=== PATIENT | female | born 1985 | race Caucasian/White ===

== ENCOUNTER 2020-01-15 11:50 | Emergency (ER) | payer BC, MEDICAID, SELFPAY ==
[2020-01-15 13:30] VITALS: BP 123/68; PULSE 69; RESP 18; TEMP 36.6; O2SAT 100; BMI 29.0
--- NOTE | 2020-01-15 13:44 | HMH.EDUTC ---
[facility] [place] Clinical Impression: Exposure to COVID-19 virus Disposition: Home, Self-Care Condition on Discharge: Good Instructions: Preventing the Spread of Coronavirus Discharge Instructions Additional Instructions: Drink plenty of fluids. Take tylenol for pain or fever. Return if you begin to have difficulty breathing. Follow up with your regular doctor. GO TO THE ER FOR ANY WORSENING SYMPTOMS Referrals: Cindy Restrepo [Primary Care Provider] - Time of Disposition: 13:52 Medical Decision Making - Medical Records Medical records reviewed: No: I reviewed the patient's medical records. - Sekou Inquiry Pt receiving controlled substance: No Vital Signs: 01/15/20 13:30 01/15/20 14:03 Temperature 97.8 F 97.8 F Temperature Source Oral Pulse Rate 69 Pulse Rate [Right Brachial] 69 Respiratory Rate 18 18 Blood Pressure 123/68 Blood Pressure [Right Arm] 123/68 Blood Pressure Mean [Right Arm] 86 Blood Pressure Source [Right Arm] Automatic Cuff Blood Pressure Position [Right Arm] Sitting 02 Sat by Pulse Oximetry 100 Oxygen Delivery Method Room Air Orders (Tests/Meds): ORDERS Category Date Time Status Covid-19 Nasal PCR ([facility]) Routine Lab 01/15/20 13:30 Received [facility] [place] - General Stated complaint: Cough, sore throat Time Seen by Provider: 01/15/20 13:44 - History of Present Illness Provider Complaint: She states that she was exposed to covid-19 by her boyfriend. She denies any symptoms, but she would like to be tested. - Related Data Allergies Allergy/AdvReac Type Severity Reaction Status Date / Time No Known Allergies Allergy Verified 12/07/18 15:30 [facility] History - Hepatitis A Screen Attestation statement:: This patient has been screened for Hepatitis A risk factors. I have reviewed the patient's past medical history: Yes Other Surgeries: Yes: Tubal Ligation Amputation: No Fractures: Yes - Social History Smoking Status: Current every day smoker Alcohol Intake: current Alcohol Intake Frequency:: holidays/special occasions only Substance Use Type: denies use Occupational Status: employed Housing: house Household Members: significant other, children Family Hx:: Diabetes, Hypertension, Coronary Artery Disease ROS Obtained: Yes All systems reviewed & no additional complaints - Constitutional Constitutional: Reports system reviewed and no additional complaints, except as docu - Eyes Eyes: Reports system reviewed and no additional complaints, except as docu - ENT Ears, Nose, Mouth, and Throat: Reports system reviewed and no additional complaints, except as docu - Cardiovascular Cardiovascular: Reports system reviewed and no additional complaints, except as docu - Respiratory Respiratory: Yes system reviewed and no additional complaints, except as docu - Gastrointestinal Gastrointestingal: Reports: system reviewed and no additional complaints, except as docu Physical Exam - General General appearance: alert, in no apparent distress - Head Head exam: atraumatic, normocephalic, normal inspection - Eye Eye exam: Present: normal appearance, PERRL, EOMI - ENT ENT exam: Present: normal exam, normal oropharynx, mucous membranes moist, TM's normal bilaterally, normal external ear exam - Neck Neck exam: Present: normal inspection, full ROM, trachea midline. Absent: meningismus, lymphadenopathy - Chest Chest inspection: Present: normal inspection, symmetric chest wall rise. Absent: tenderness - Respiratory Respiratory exam: Present: normal lung sounds bilaterally. Absent: respiratory distress - Cardiovascular Cardiovascular exam: Present: regular rate, normal rhythm. Absent: JVD - Abdominal Exam Abdominal exam: Present: soft, normal bowel sounds. Absent: distention, tenderness, guarding - Extremities Exam Extremities exam: Present: normal inspection, full ROM, normal capillary refill. Absent: calf tenderness - Back
[2020-01-15 14:03] VITALS: BP 123/68; PULSE 69; RESP 18; TEMP 36.6; O2SAT 100
== END 2020-01-15 14:05 | disposition home or self-care (01) ==
PROVIDERS: Emergency Provider Nurse Practitioner Family; PCP Nurse Practitioner Family
DX: Z20.828 Contact with and (suspected) exposure to other viral communicable diseases (principal); F17.210 Nicotine dependence, cigarettes, uncomplicated
CPT/HCPCS: 99201; U0003

== ENCOUNTER 2020-01-27 10:35 | Emergency (ER) | payer BC, MEDICAID, SELFPAY ==
[2020-01-27 10:45] VITALS: BP 114/75; PULSE 108; RESP 18; TEMP 37; O2SAT 100; BMI 26.5
--- NOTE | 2020-01-27 10:59 | HMH.EDUTC ---
[place] Disposition Clinical Impression: Encounter for laboratory testing for COVID-19 virus Disposition: Home, Self-Care Condition on Discharge: Good Instructions: Preventing the Spread of Coronavirus Discharge Instructions Additional Instructions: You was tested for today for COVID19 your test result should be back in the next 24-48 hours, you may call to the [facility] tomorrow to see if your test results are back however could take up to 48 hours before results are back [phone] [facility] hours are 9am-9pm You was given a handout with instructions for Self Quarantine and Self isolation for while you wait on test results and what to do if they are positive If you are positive the Health Dept will be contacting you also Referrals: Cindy Restrepo [Primary Care Provider] - As needed Forms: Work/School Release Time of Disposition: 11:01 Medical Decision Making - Sekou Inquiry Pt receiving controlled substance: No Sekou was queried for this patient: No Vital Signs: 01/27/20 10:45 Temperature 98.6 F Temperature Source Oral Pulse Rate [Right Brachial] 108 H Respiratory Rate 18 Blood Pressure [Right Arm] 114/75 Blood Pressure Mean [Right Arm] 88 Blood Pressure Source [Right Arm] Automatic Cuff Blood Pressure Position [Right Arm] Sitting 02 Sat by Pulse Oximetry 100 Oxygen Delivery Method Room Air Orders (Tests/Meds): ORDERS Category Date Time Status Covid-19 Nasal PCR Sendout [facility] Stat Lab 01/27/20 10:56 Ordered [place] HPI - General Stated complaint: Covid test Time Seen by Provider: 01/27/20 10:59 Mode of Arrival: Ambulatory Source of Information: Patient Limitations: No Limitations Description of Symptoms (Recalled from Triage Doc. by RN): PATIENT'S DAUGHTER TESTED POSITIVE FOR COVID AND PATIENT IS NEEDING A NEGATIVE COVID TEST TO RETURN TO WORK HEENT Symptoms (Recalled from RN notes): No Resp Symptoms (Recalled from RN notes): No Skin Symptoms (Recalled from RN notes): No MS Symptoms (Recalled from RN notes): No Functional Status (Recalled from RN notes): WNL - History of Present Illness Provider Complaint: Patient states that she has been under quarantine since her daughter tested positive for COVID States that her quarantine period is up and she had to coem in to get tested because her work wanted a negative COVID test before she could return - Related Data Allergies Allergy/AdvReac Type Severity Reaction Status Date / Time No Known Allergies Allergy Verified 12/07/18 15:30 - Worker's Comp Is this a Worker's Comp case?: No [facility] History - Hepatitis A Screen Drug use history?: No High risk sexual behaviors?: No History of sexually transmitted infection?: No Currently employed?: No Childcare worker?: No Do you have indoor plumbing?: Yes Do you have electricity?: Yes Attestation statement:: This patient has been screened for Hepatitis A risk factors. I have reviewed the patient's past medical history: Yes Other Surgeries: Yes: Tubal Ligation Amputation: No Fractures: Yes - Social History Smoking Status: Current every day smoker Alcohol Intake: never Alcohol Intake Frequency:: holidays/special occasions only Substance Use Type: denies use Occupational Status: other Housing: house Household Members: significant other, children Family Hx:: Diabetes, Hypertension, Coronary Artery Disease ROS Obtained: Yes All systems reviewed & no additional complaints, Yes Systems reviewed as appropriate & no additional complaints - Constitutional Constitutional: Reports system reviewed and no additional complaints, except as docu, Denies body ache, Denies fever(s), Denies headache(s) - ENT Ears, Nose, Mouth, and Throat: Reports system reviewed and no additional complaints, except as docu - Cardiovascular Cardiovascular: Reports system reviewed and no additional complaints, except as docu - Respiratory Respiratory: Yes system reviewed and no additional complaints, except as docu - Gastr
[2020-01-27 11:10] VITALS: BP 114/75; PULSE 108; RESP 18; TEMP 37; O2SAT 100
[2020-01-28 10:02] LABS: Covid-19 Nasal PCR Sendout Lex NOT DETECTED
== END 2020-01-27 11:14 | disposition home or self-care (01) ==
PROVIDERS: Emergency Provider Nurse Practitioner; PCP Nurse Practitioner Family
DX: Z20.828 Contact with and (suspected) exposure to other viral communicable diseases (principal); F17.210 Nicotine dependence, cigarettes, uncomplicated
CPT/HCPCS: 99201; U0004

== ENCOUNTER 2020-03-07 09:56 | Emergency (ER) | payer OTHER, MEDICAID, SELFPAY ==
[2020-03-07 10:25] VITALS: BP 120/83; PULSE 79; RESP 20; TEMP 36.8; O2SAT 100; BMI 26.5
--- NOTE | 2020-03-07 10:48 | HMH.EDUTC ---
[facility] [place]ression: Exposure to COVID-19 virus Disposition: Home, Self-Care Condition on Discharge: Good Instructions: Preventing the Spread of Coronavirus Discharge Instructions Additional Instructions: Drink plenty of fluids. Take tylenol for pain or fever. Return if you begin to have difficulty breathing. Follow up with your regular doctor. GO TO THE ER FOR ANY WORSENING SYMPTOMS Referrals: Cindy Restrepo [Primary Care Provider] - Time of Disposition: 11:02 Medical Decision Making - Medical Records Medical records reviewed: No: I reviewed the patient's medical records. - Sekou Inquiry Pt receiving controlled substance: No Vital Signs: 03/07/20 10:25 03/07/20 11:04 Temperature 98.3 F 98.3 F Temperature Source Oral Pulse Rate 79 Pulse Rate [Right Brachial] 79 Respiratory Rate 20 20 Blood Pressure 120/83 Blood Pressure [Right Arm] 120/83 Blood Pressure Mean [Right Arm] 95 Blood Pressure Source [Right Arm] Automatic Cuff Blood Pressure Position [Right Arm] Sitting 02 Sat by Pulse Oximetry 100 Oxygen Delivery Method Room Air [facility] [place] - General Stated complaint: covid exposure Time Seen by Provider: 03/07/20 10:48 - History of Present Illness Provider Complaint: She states that she has been exposed to covid-19. Both her parents and her son have covid right now. - Related Data Allergies Allergy/AdvReac Type Severity Reaction Status Date / Time No Known Allergies Allergy Verified 12/07/18 15:30 [facility] History - Hepatitis A Screen Attestation statement:: This patient has been screened for Hepatitis A risk factors. I have reviewed the patient's past medical history: Yes Other Surgeries: Yes: Tubal Ligation Amputation: No Fractures: Yes - Social History Smoking Status: Current every day smoker Alcohol Intake: never Alcohol Intake Frequency:: holidays/special occasions only Substance Use Type: denies use Occupational Status: other Housing: house Household Members: significant other, children Family Hx:: Diabetes, Hypertension, Coronary Artery Disease ROS Obtained: Yes All systems reviewed & no additional complaints - Constitutional Constitutional: Reports system reviewed and no additional complaints, except as docu - Eyes Eyes: Reports system reviewed and no additional complaints, except as docu - ENT Ears, Nose, Mouth, and Throat: Reports system reviewed and no additional complaints, except as docu - Cardiovascular Cardiovascular: Reports system reviewed and no additional complaints, except as docu - Respiratory Respiratory: Reports system reviewed and no additional complaints, except as docu - Gastrointestinal Gastrointestingal: Reports: system reviewed and no additional complaints, except as docu Physical Exam - General General appearance: alert, in no apparent distress - Head Head exam: atraumatic, normocephalic, normal inspection - Eye Eye exam: Present: normal appearance, PERRL, EOMI - ENT ENT exam: Present: normal exam, normal oropharynx, mucous membranes moist, TM's normal bilaterally, normal external ear exam - Neck Neck exam: Present: normal inspection, full ROM, trachea midline. Absent: meningismus, lymphadenopathy - Chest Chest inspection: Present: normal inspection, symmetric chest wall rise. Absent: tenderness - Respiratory Respiratory exam: Present: normal lung sounds bilaterally. Absent: respiratory distress - Cardiovascular Cardiovascular exam: Present: regular rate, normal rhythm. Absent: JVD - Abdominal Exam Abdominal exam: Present: soft, normal bowel sounds. Absent: distention, tenderness, guarding - Extremities Exam Extremities exam: Present: normal inspection, full ROM, normal capillary refill. Absent: calf tenderness - Back Exam Back exam: Present: normal inspection. Absent: tenderness - Neurological Exam Neurological exam: Present: alert, oriented X3 - Psychiatric
[2020-03-07 11:04] VITALS: BP 120/83; PULSE 79; RESP 20; TEMP 36.8; O2SAT 100
== END 2020-03-07 11:09 | disposition home or self-care (01) ==
PROVIDERS: Emergency Provider Nurse Practitioner Family; PCP Nurse Practitioner Family
DX: Z20.822 Contact with and (suspected) exposure to COVID-19 (principal); F17.210 Nicotine dependence, cigarettes, uncomplicated
CPT/HCPCS: 99202; G0463; U0003

== ENCOUNTER 2020-03-10 09:07 | Emergency (ER) | payer OTHER, MEDICAID, SELFPAY ==
[2020-03-10 09:15] VITALS: BP 123/77; PULSE 69; RESP 19; TEMP 37.1; O2SAT 100; BMI 26.5
--- NOTE | 2020-03-10 09:42 | HMH.EDUTC ---
[facility] [place] Clinical Impression: Exposure to COVID-19 virus Disposition: Home, Self-Care Condition on Discharge: Good Instructions: DI for COVID-19 (Suspected or Confirmed ), Coronavirus Disease 2019, Preventing the Spread of Coronavirus Discharge Instructions Additional Instructions: *Monitor Temp, Over the counter Motrin or Tylenol as directed/as needed Tylenol every 4 hours and Motrin every 6 hours (as long as your family doctor has told you that you can take it) for fever or pain. and straight to ER if unable to lower temp less than 101.0 after medication given Follow up IMMEDIATELY for new or worsening symptoms or no Noticeable improvement over the next 48-72 hours. 911 for difficulty breathing or swallowing You were tested for today for COVID19 your test result should be back in the next 24-48 hours, you may call to the [facility] to see if your test results are back in the next 48 hours [phone] [facility] hours are 9am-9pm You was given a handout with instructions for Self Quarantine and Self isolation for while you wait on test results and what to do if they are positive If you are positive the Health Dept will be contacting you also Referrals: Cindy Restrepo [Primary Care Provider] - As needed Time of Disposition: 09:43 Medical Decision Making - Sekou Inquiry Pt receiving controlled substance: No Sekou was queried for this patient: No Vital Signs: 03/10/20 09:15 Temperature 98.7 F Temperature Source Oral Pulse Rate [Right Brachial] 69 Respiratory Rate 19 Blood Pressure [Right Arm] 123/77 Blood Pressure Mean [Right Arm] 92 Blood Pressure Source [Right Arm] Automatic Cuff Blood Pressure Position [Right Arm] Sitting 02 Sat by Pulse Oximetry 100 Oxygen Delivery Method Room Air Orders (Tests/Meds): ORDERS Category Date Time Status Covid-19 Nasal PCR Sendout [facility] Stat Lab 03/10/20 09:15 Ordered [facility] [place] HPI - General Stated complaint: Covid re test Time Seen by Provider: 03/10/20 09:42 Mode of Arrival: Ambulatory Source of Information: Patient Limitations: No Limitations Description of Symptoms (Recalled from Triage Doc. by RN): NEEDING COVID TEST TO RETURN TO WORK. DENIES SYMPTOMS HEENT Symptoms (Recalled from RN notes): No Resp Symptoms (Recalled from RN notes): No Skin Symptoms (Recalled from RN notes): No MS Symptoms (Recalled from RN notes): No Functional Status (Recalled from RN notes): WNL - History of Present Illness Provider Complaint: Patient states that she was recently about several people at work that has since tested positive for COVID States that her mother also was positive States that she is not having any symptoms and wanted to get tested so she can return to work States that she was tested on Saturday and it was negative but thinks she may have tested too soon - Related Data Allergies Allergy/AdvReac Type Severity Reaction Status Date / Time No Known Allergies Allergy Verified 12/07/18 15:30 - Worker's Comp Is this a Worker's Comp case?: No [facility] History - Hepatitis A Screen Drug use history?: No High risk sexual behaviors?: No History of sexually transmitted infection?: No Currently employed?: No Childcare worker?: No Do you have indoor plumbing?: Yes Do you have electricity?: Yes Attestation statement:: This patient has been screened for Hepatitis A risk factors. I have reviewed the patient's past medical history: Yes Other Surgeries: Yes: Tubal Ligation Amputation: No Fractures: Yes - Social History Smoking Status: Current every day smoker Alcohol Intake: never Alcohol Intake Frequency:: holidays/special occasions only Substance Use Type: denies use Occupational Status: other Housing: house Household Members: significant other, children Family Hx:: Diabetes, Hypertension, Coronary Artery Disease ROS Obtained: Yes All systems reviewed & no additional complaints, Yes Systems reviewed as appropriate & no additional complaints - Constitutional Const
[2020-03-10 09:46] VITALS: BP 123/77; PULSE 69; RESP 19; TEMP 37.1; O2SAT 100
[2020-03-11 07:55] LABS: Covid-19 Nasal PCR Sendout P&C NEGATIVE
== END 2020-03-10 09:48 | disposition home or self-care (01) ==
PROVIDERS: Emergency Provider Nurse Practitioner; PCP Nurse Practitioner Family
DX: Z20.822 Contact with and (suspected) exposure to COVID-19 (principal); F17.210 Nicotine dependence, cigarettes, uncomplicated
CPT/HCPCS: 99202; G0463; U0004

== ENCOUNTER → 2021-03-21 20:06 | Outpatient (CLI) | payer OTHER, MEDICAID, SELFPAY | PROVIDERS: PCP Nurse Practitioner Family; Visit Provider Emergency Medicine | DX: Z20.822 Contact with and (suspected) exposure to COVID-19 (principal) | CPT/HCPCS: C9803; U0003; U0005 ==

== ENCOUNTER → 2021-08-01 13:17 | Outpatient (CLI) | payer OTHER, MEDICAID, SELFPAY ==
--- NOTE | 2021-08-01 13:17 | US_ITS ---
FINAL REPORT CLINICAL HISTORY: pelvic pain FINDINGS: Transvaginal sonographic images of the pelvis were obtained. The uterus is mildly enlarged and measures 9.2 x 5.9 x 4.9 cm. The endometrium measures 8 mm, which is within normal limits. No uterine mass is identified. The right ovary measures 2.8 cm in length and left ovary measures 3.5 cm in length. Normal blood flow seen to the ovaries. Small follicles are present bilaterally. There is a 1.8 cm left ovarian cyst. There is no evidence of free fluid. IMPRESSION: Uterus is mildly enlarged. 1.8 cm left ovarian cyst. Reviewed, Interpreted and Dictated by Jerry Diaz III, MD Transcribed by Lina Jimenez Authenticated and [facility]
== END ==
PROVIDERS: PCP Nurse Practitioner Family; Visit Provider Obstetrics & Gynecology
DX: R10.2 Pelvic and perineal pain (principal)
CPT/HCPCS: 76830

== ENCOUNTER → 2021-09-06 08:08 | Outpatient (CLI) | payer OTHER, MEDICAID, SELFPAY ==
[2021-09-06 08:14] LABS: MANUAL DIFFERENTIAL MANUAL DIFFERENTIAL (MANUAL DIFF)
[2021-09-06 08:34] LABS: Basophils % 0.6 % (0.1-2.0); Eosinophils # 0.2 K/mm3 (0.0-0.4); Eosinophils % 3.4 % (0.1-12.0); Hematocrit 41.9 % (37.0-47.0); Hemoglobin 13.4 g/dL (12.2-16.2); Lymphocytes # 1.4 K/mm3 (0.7-4.5); Lymphocytes % 24.8 % (10-50); Mean Corpuscular Hemoglobin 30.8 pg (27.0-31.2); Mean Corpuscular Volume 96.4 fl (81-99); Mean Platelet Volume 9.7 fl (7.4-10.4); Monocytes # 0.3 K/mm3 (0.1-1.0); Monocytes % 5.7 % (1.7-9.3); Neutrophils # 3.7 K/mm3 (1.8-7.8); Neutrophils % 65.4 % (37.0-80.0); Platelet Count 223 K/mm3 (142-424); Red Blood Count 4.35 M/mm3 (4.20-5.40); Red Cell Distribution Width 13.1 % (11.5-17.5); Urine Pregnancy, HCG Qual. Negative (Negative); White Blood Count 5.7 K/mm3 (4.8-10.8)
[2021-09-06 09:14] LABS: Anion Gap 10.2 mEq/L (5-15); Blood Urea Nitrogen 13 mg/dl (7-17); Carbon Dioxide 28 mmol/L (22.0-30.0); Chloride 104 mmol/L (98-107); Estimated Glomerular Filt Rate 80 ml/min (>60); GFR (African American) 97 ML/MIN (>60); Glucose 110 mg/dl (74-100); Potassium 4.2 mmoL/L (3.5-5.1); Sodium 138 mmol/L (136-145)
[2021-09-06 10:10] LABS: Lymphocytes % 21 % (10-50); Monocytes % 4 % (2-9); Neutrophils % 75 % (42-76); Platelet Estimate Normal; RBC Morphology Normal; Total Cells Counted 100
== END ==
PROVIDERS: PCP Nurse Practitioner Family; Visit Provider Urology
DX: Z01.812 Encounter for preprocedural laboratory examination (principal); Z20.822 Contact with and (suspected) exposure to COVID-19; N39.3 Stress incontinence (female) (male)
CPT/HCPCS: 36415; 80048; 81025; 85007; 85014; 85018; 85048; 85049; C9803; U0003; U0005

== ENCOUNTER 2021-09-08 07:38 | Day surgery (SDC) | payer OTHER, MEDICAID, SELFPAY ==
[2021-09-07 08:09] VITALS: BMI 26.5
[2021-09-08] VITALS (9 sets, daily range): BP systolic 104–136; BP diastolic 67–83; PULSE 67–95; RESP 16–18; TEMP 36.2–36.9; O2SAT 98–100
--- NOTE | 2021-09-08 12:24 | HMH.OPNOTE ---
Date of procedure: 09/08/21 Pre-op Diagnosis:: Stress urinary incontinence Post-op Diagnosis:: Stress urinary incontinence Procedure performed:: Transobturator tape placement with cystoscopy Surgeon:: Adam Coppola MD COAL HANDLING SUPERVISOR:: Other (ana paula) Anesthesia: LMA Estimated blood loss (mL): 10 Clinical Note:: 36-year-old white female with stress urinary incontinence. She presents for transobturator tape placement. Operative findings:: Upon incision of the anterior vaginal wall dissection of the periurethral space a previously placed infra pubic sling was found. Some of the mesh components were dissected and removed. New transobturator tape was placed without difficulty. Operative note:: Patient taken to the operating room after informed consent was obtained. He was placed on the operating table in the supine position and general anesthesia administered. Sequential compression devices were placed in preoperative antibiotics administered. She was then placed into the dorsal lithotomy position and prepped and draped in the standard surgical fashion. A 16 [place] Srinivasan catheter was placed and the bladder drained. The Srinivasan been clamped and placed onto the abdomen. Weighted vaginal speculum was placed. The thigh incisions were made at the insertion of the abductor longus in the plane lateral to the clitoris bilaterally. Local anesthetic was placed into these sites prior to the small incision. The anterior vaginal wall was incised with a scalpel and there was noted to be mesh sling from a previous placement. The mesh components were dissected free laterally. The periurethral space was then developed in a different plane bilaterally. Finger dissection was used to mobilize the bladder neck. Our [employer] sling kit was then opened. A trocar was placed into the right inner thigh incision and passed around the ischial pubic ramus and guided on my finger out the vaginal incisions. The transobturator tape was placed onto the end of the trocar and pulled back out through thigh. Trocar was then placed into the left inner thigh incision and around the ischial pubic ramus and a house the vaginal incision was again guided on my finger. Care was taken to make sure there is no injury to the lateral vaginal fornix. Cystoscopy was then performed after removing the Srinivasan catheter. There is no evidence of any bladder or urethral injury. Srinivasan catheter was replaced and the bladder was drained. The other end of the transobturator tape was placed onto the objects and pulled back out through the left thigh incision. The sling was pulled superiorly to take out the slack. A curved clamp was placed between the urethra and the sling and the sling was snugged up to the urethra. We then excised the excess sling at the thigh bilaterally and the vaginal incision was closed with a running 3-0 chromic. Vaginal packing was placed and Dermabond placed on the thigh incisions. Srinivasan bag placed to the urethra and a voiding trial will be performed in the recovery room. Patient tolerated procedure well no complications. Condition: stable Disposition: PACU Specimens:: Urethral mass from old placement needs not sent Complications:: None
== END 2021-09-08 11:55 | disposition home or self-care (01) ==
LOC: OR 07:39
PROVIDERS: PCP Nurse Practitioner Family; Visit Provider Urology
PROC: (CPT 57288; principal; 2021-09-08 09:15)
DX: N39.3 Stress incontinence (female) (male) (principal); Z72.0 Tobacco use; Z79.899 Other long term (current) drug therapy
CPT/HCPCS: 57288; 96374; C1771; J2405

== ENCOUNTER 2022-12-09 09:22 | Emergency (ER) | payer OTHER, MEDICAID, SELFPAY ==
[2022-12-09 09:30] VITALS: BP 118/77; PULSE 86; RESP 19; TEMP 36.8; O2SAT 99; BMI 27.1
--- NOTE | 2022-12-09 09:42 | EXP.UTC ---
Discharge Plan Disposition Patient Disposition: Home, Self-Care Condition: Good Prescriptions Prescriptions: New cephalexin 500 mg capsule 500 mg PO QID 7 Days Qty: 28 0RF mupirocin 2 % ointment 1 applic topical TID 10 Days Qty: 22 0RF Rx Instructions: apply to skin around right great toenail Referrals Follow up/Referrals: Cindy Restrepo [Primary Care Provider] - See instructions Janusz Cervantes DPM [Physician] - See instructions Mel Johnson APRN [Nurse Practitioner] - See instructions Liliam Draper DPM [Staff Physician] - See instructions Activity Restrictions/Add. Instructions Additional Instructions/Restrictions: Soak foot 3-4 times daily in warm water and epson salt Wear loose toed shoes Take oral antibiotics as prescribed Follow up with your Family Doctor or Podiatry for removal if needed Straight to ER if any life threatening symptoms Clinical Impressions Clinical Impression: Ingrowing toenail with infection Instructions Patient Instructions: DI for Infected Ingrown Toenail, DI for Ingrown Toenail Discharge ED Provider: Cristy Zhu [facility] General Stated complaint: possible infection in right big toe Mode of Arrival: Ambulatory Source of Information: Patient Limitations: No Limitations Time Seen by Provider: 12/09/22 09:42 Description of Symptoms (Recalled from Triage Doc. by RN): PATIENT C/O POSSIBLE INFECTION TO RIGHT GREAT TOE X 2 DAYS HEENT Symptoms (Recalled from RN notes): No Resp Symptoms (Recalled from RN notes): No Skin Symptoms (Recalled from RN notes): Yes MS Symptoms (Recalled from RN notes): No Functional Status (Recalled from RN notes): WNL History of Present Illness Provider Complaint: Patient states that she has an infected ingrown toenail on her right great toe States that she has been using peroxide to try to get it cleared up but not helped much States that around nail on toe it is swollen and red so today she came in to get checked Related Data Previous Rx's Medication Instructions Recorded cephalexin 500 mg capsule 500 mg PO QID 7 days #28 caps 12/09/22 mupirocin 2 % topical ointment 1 applic topical TID 10 days #22 12/09/22 grams Allergies Allergy/AdvReac Type Severity Reaction Status Date / Time No Known Allergies Allergy Verified 10/06/21 13:24 Worker's Comp Is this a Worker's Comp case?: No [facility] Disclaimer: The information contained in this section may have been updated after the patient was seen, as this information can be updated by other users. Surgical History (Updated 12/09/22 @ 09:38 by Inocencia Beck RN) History of tubal ligation Social History Smoking Status: Current every day smoker tobacco type: e-cigarettes second hand exposure: No alcohol intake: current substance use type: denies use current occupational status: employed Travel in the last 8 weeks: None household members: spouse and family housing: house current occupation: [employer] current occupational exposures/hazards: Yes caffeine: Yes ROS Obtained: Yes All systems reviewed & no additional complaints except as documented and Yes Systems reviewed as appropriate & no additional complaints except as documented Constitutional Constitutional: Reports system reviewed and no additional complaints, except as documented and Reports as per HPI ENT Ears, Nose, Mouth, and Throat: Reports system reviewed and no additional complaints, except as documented and Reports as per HPI Cardiovascular Cardiovascular: Reports system reviewed and no additional complaints, except as documented and Reports as per HPI Respiratory Respiratory: Reports system reviewed and no additional complaints, except as documented and Reports as per HPI Musculoskeletal Musculoskeletal: Reports system reviewed and no additional complaints, except as documented and Reports as per HPI Integumentary/Breasts Skin/Breast: Reports system reviewed and no additional co
[2022-12-09 09:52] VITALS: BP 118/77; PULSE 86; RESP 19; TEMP 36.8; O2SAT 99
== END 2022-12-09 09:54 | disposition home or self-care (01) ==
PROVIDERS: Emergency Provider Nurse Practitioner; PCP Nurse Practitioner Family
DX: L60.0 Ingrowing nail (principal); L08.9 Local infection of the skin and subcutaneous tissue, unspecified; F17.290 Nicotine dependence, other tobacco product, uncomplicated
CPT/HCPCS: 99212; 99214; G0463